=== PATIENT | male | born 1940 | race Caucasian/White ===

== ENCOUNTER 2024-02-20 18:33 | Inpatient (IN) | payer MEDICARE ==
[~2024-02-20] VITALS: Ht 170.2 cm; Wt 81.6 kg
[2024-02-20 19:58] VITALS: BP 172/65; PULSE 67; RESP 18; TEMP 98.7; O2SAT 97
[2024-02-20 20:00] VITALS: BP 172/65; PULSE 67; RESP 18; TEMP 98.7; O2SAT 97
[2024-02-20] MEDS ORDERED: AMLODIPINE BESY10 MG PO (21:08)
[2024-02-20] MEDS ORDERED: FLOMAX0.4 MG PO (21:19)
[2024-02-20] MEDS ORDERED: OLMESARTAN-HCT1 EACH (21:19)
[2024-02-20] MEDS ORDERED: OMEPRAZOLE40 MG PO (21:19)
[2024-02-20] MEDS ORDERED: DYMISTA NASAL S23 GM INH (21:19)
[2024-02-20] MEDS ORDERED: FUROSEMIDE40 MG PO (21:19)
[2024-02-20] MEDS ORDERED: LASIX20 MG PO (21:19)
[2024-02-20] MEDS ORDERED: KENALOG-4040 MG/1 ML INJ (21:19)
[2024-02-20] MEDS ORDERED: GLIPIZIDE5 MG PO (21:19)
[2024-02-20] MEDS ORDERED: SYNTHROID100 MCG PO (21:19)
[2024-02-20] MEDS ORDERED: B12 ACTIVE1000 MCG (21:19)
[2024-02-20] MEDS ORDERED: HYDRALAZINE HCL25 MG PO (21:19)
[2024-02-20] MEDS ORDERED: PRAVASTATIN SOD40 MG (21:19)
[2024-02-20] MEDS ORDERED: NEURONTIN100 MG PO (21:19)
[2024-02-20] MEDS ORDERED: LEVOTHYROXINE100 MC1 IV (21:19)
[2024-02-20] MEDS ORDERED: CICLOPIROX15 GM TOP (21:19)
[2024-02-20] MEDS: HYDRALAZINE HCL 25 MG TAB PO SCH (22:16)
[2024-02-20 22:33] VITALS: BP 172/65; PULSE 67; RESP 18; TEMP 98.7; O2SAT 100
[2024-02-20 23:48] VITALS: BP 139/45; PULSE 87; RESP 20; TEMP 98.6; O2SAT 96
[2024-02-21] VITALS (7 sets, daily range): BP systolic 136–180; BP diastolic 54–78; PULSE 64–78; RESP 16–18; TEMP 98.1–98.7; O2SAT 97–100
[2024-02-21] MEDS ORDERED: ONDANSETRON HCL INJ 2MG/ML 2ML 2 MG/ML VIAL IV PRN
[2024-02-21] MEDS ORDERED: MAGNESIUM/ALUMINUM/SIMETHICONE 30 ML UDC PO PRN
[2024-02-21] MEDS ORDERED: METOPROLOL TARTRATE INJ 1 MG/ML VIAL IV PRN
[2024-02-21] MEDS ORDERED: GUAIFENESIN/DEXTROMETHORPHAN LIQD 5 ML UDC PO PRN
[2024-02-21] MEDS ORDERED: HYDRALAZINE HCL 20 MG/ML VIAL IV PRN
[2024-02-21] MEDS ORDERED: ACETAMINOPHEN 325 MG TAB PO PRN
[2024-02-21] MEDS ORDERED: POLYETHYLENE GLYCOL 3350 17 GM PACK PO PRN
[2024-02-21] MEDS ORDERED: DEXTROSE 50% SYRINGE 50 ML IV PRN (00:30)
[2024-02-21] MEDS: LEVOTHYROXINE SODIUM 100 MCG TAB PO SCH (05:43)
[2024-02-21 06:27] LABS: BASOPHILS % 0.5 % (0.0-1.0); EOSINOPHILS # (AUTO) 0.3 (0.0-0.4); EOSINOPHILS % 3.9 % (0.0-6.0); HEMATOCRIT 29.6 % (38.2-49.6); HEMOGLOBIN 9.4 g/dL (14.0-18.0); LYMPHOCYTES # (AUTO) 1.8 (1.0-3.2); LYMPHOCYTES % 28.3 % (18.0-39.1); MEAN CORPUSCULAR HEMOGLOBIN 28.7 pg (28-32); MEAN CORPUSCULAR HGB CONC 31.8 g/dL (31-35); MEAN CORPUSCULAR VOLUME 90.5 fL (81-99); MONOCYTES # (AUTO) 1.1 (0.2-0.8); MONOCYTES % 17.3 % (4.4-11.3); NEUTROPHILS # (AUTO) 3.1 (2.1-6.9); NEUTROPHILS % 49.5 % (38.7-80.0); PLATELET COUNT 186 x10e3/uL (140-360); RED BLOOD COUNT 3.27 x10e6/uL (4.3-5.7); RED CELL DISTRIBUTION WIDTH 14.1 % (11.7-14.4); WHITE BLOOD COUNT 6.35 x10e3/uL (4.8-10.8)
[2024-02-21 07:00] LABS: ALBUMIN 3.6 g/dL (3.5-5.0); ALBUMIN/GLOBULIN RATIO 1.6 (0.8-2.0); ANION GAP 15.2 mmol/L (8-16); BILIRUBIN,TOTAL 0.5 mg/dL (0.2-1.2); CALCIUM 9.1 mg/dL (8.4-10.2); CREATININE, SERUM 2.71 mg/dL (0.72-1.25); MAGNESIUM 1.7 MG/DL (1.3-2.1); POTASSIUM 4.2 mmol/L (3.5-5.1); TOTAL PROTEIN 5.9 g/dL (6.5-8.1)
[2024-02-21] MEDS: DOCUSATE SODIUM 100 MG CAP PO SCH (09:44)
[2024-02-21] MEDS: MULTIVITAMINS/MINERALS TAB PO SCH (09:44)
[2024-02-21] MEDS: FUROSEMIDE 20 MG TAB PO SCH (09:45)
[2024-02-21] MEDS: OLMESARTAN 20 MG TAB PO SCH (09:45)
[2024-02-21] MEDS: PANTOPRAZOLE SOD 40 MG TABEC PO SCH (09:45)
[2024-02-21] MEDS: AMLODIPINE BESYLATE 10 MG TAB PO SCH (09:45)
[2024-02-21] MEDS: INSULIN REGULAR, HUMAN 100 UNIT/1 ML SQ SCH (09:52)
[2024-02-21] MEDS: AZELASTINE 0.1% HCL 137 MCG NASAL SPRAY NS SCH (09:54)
[2024-02-21] MEDS: TAMSULOSIN HCL 0.4 MG CAP PO SCH (09:54)
[2024-02-21] MEDS: ENOXAPARIN INJ 80 MG/0.8 ML SYR SC SCH (13:02)
[2024-02-21] MEDS ORDERED: ENOXAPARIN SOD INJ 40 MG/0.4 ML SYR SC SCH (17:00)
[2024-02-21] MEDS: GABAPENTIN 100 MG CAP PO SCH (21:00)
[2024-02-21] MEDS: PRAVASTATIN 20 MG TAB PO SCH (21:19)
[2024-02-22] VITALS: BP 148/48; PULSE 66; RESP 20; TEMP 98.7; O2SAT 100
[2024-02-22 05:24] VITALS: BP 159/62; PULSE 69; RESP 18; TEMP 99.5; O2SAT 100
[2024-02-22 05:52] LABS: BILIRUBIN,URINE NEGATIVE (NEGATIVE); CLARITY,URINE CLEAR (CLEAR); COLOR,URINE YELLOW (YELLOW); GLUCOSE, URINE NEGATIVE (NEGATIVE); KETONES,URINE NEGATIVE (NEGATIVE); LEUKOCYTE ESTERASE ,URINE NEGATIVE (NEGATIVE); NITRITE,URINE NEGATIVE (NEGATIVE); PH,URINE 5.5 (5 - 7); PROTEIN,URINE DIPSTICK NEGATIVE (NEGATIVE); URINE UROBILINOGEN 0.2 mg/dL (0.2 - 1)
[2024-02-22 06:15] LABS: BACTERIA,URINE RARE /HPF; EPITHELIAL CELLS,URINE RARE /LPF; RBC,URINE 0-5 /HPF (0-5); WBC,URINE (MAN) 0-5 /HPF (0-5)
[2024-02-22 06:50] LABS: CREATININE, SERUM 2.73 mg/dL (0.72-1.25)
[2024-02-22 08:00] VITALS: BP 134/59; PULSE 73; RESP 17; TEMP 98.1; O2SAT 98
[2024-02-22 08:59] LABS: POTASSIUM 3.9 mmol/L (3.5-5.1)
[2024-02-22 09:00] LABS: CALCIUM 9.5 mg/dL (8.4-10.2)
[2024-02-22] MEDS: FUROSEMIDE 40 MG TAB PO SCH (09:36)
[2024-02-22] MEDS: METOPROLOL SUCCINATE 50 MG TAB XL PO SCH (09:36)
[2024-02-22 10:13] LABS: ANION GAP 15.9 mmol/L (8-16)
[2024-02-22 12:00] VITALS: BP 153/55; PULSE 59; RESP 20; TEMP 98; O2SAT 98
[2024-02-22] MEDS ORDERED: TOPROL XL50 MG PO (12:43)
== END 2024-02-22 13:09 | disposition home or self-care (01) | DRG 308 ==
LOC: MED/SURG3 18:33 → OBSVTOIN 02-21 18:25
PROVIDERS: ADMIT Internal Medicine Critical Care Medicine; ATTEND Internal Medicine Critical Care Medicine
DX: I48.0 Paroxysmal atrial fibrillation (principal); I50.33 Acute on chronic diastolic (congestive) heart failure; I13.0 Hypertensive heart and chronic kidney disease with heart failure and stage 1 through stage 4 chronic kidney disease, or unspecified chronic kidney disease; N17.9 Acute kidney failure, unspecified; E11.40 Type 2 diabetes mellitus with diabetic neuropathy, unspecified; E11.22 Type 2 diabetes mellitus with diabetic chronic kidney disease; N18.30 Chronic kidney disease, stage 3 unspecified; E78.00 Pure hypercholesterolemia, unspecified; E03.9 Hypothyroidism, unspecified; D63.1 Anemia in chronic kidney disease; N40.0 Benign prostatic hyperplasia without lower urinary tract symptoms; Z11.52 Encounter for screening for COVID-19; K59.09 Other constipation; Z79.84 Long term (current) use of oral hypoglycemic drugs; Z79.890 Hormone replacement therapy; Z85.828 Personal history of other malignant neoplasm of skin; Z88.5 Allergy status to narcotic agent
CPT/HCPCS: 36415; 71045; 80048; 80053; 81001; 82270; 82948; 83735; 85025; 93005; 93306; G0378; J1650; U0002

== ENCOUNTER 2024-03-29 17:26 | Inpatient (IN) | payer MEDICARE ==
[~2024-03-29] VITALS: Ht 170.2 cm; Wt 81.6 kg
[~2024-03-29 17:26] MED LIST: AMLODIPINE BESY10 MG PO; B12 ACTIVE1000 MCG; CICLOPIROX15 GM TOP; DYMISTA NASAL S23 GM INH; FLOMAX0.4 MG PO; FUROSEMIDE40 MG PO; GLIPIZIDE5 MG PO; HYDRALAZINE HCL25 MG PO; KENALOG-4040 MG/1 ML INJ; LASIX20 MG PO; LEVOTHYROXINE100 MC1 IV; NEURONTIN100 MG PO; OLMESARTAN-HCT1 EACH; OMEPRAZOLE40 MG PO; PRAVASTATIN SOD40 MG; SYNTHROID100 MCG PO; TOPROL XL50 MG PO
[2024-03-29 17:43] VITALS: TEMP 99.2
[2024-03-29 18:10] LABS: BASOPHILS % 0.6 % (0.0-1.0); EOSINOPHILS # (AUTO) 0.4 (0.0-0.4); EOSINOPHILS % 5.8 % (0.0-6.0); HEMOGLOBIN 7.1 g/dL (14.0-18.0); LYMPHOCYTES % 30.8 % (18.0-39.1); MEAN CORPUSCULAR HEMOGLOBIN 29.2 pg (28-32); MEAN CORPUSCULAR HGB CONC 30.9 g/dL (31-35); MEAN CORPUSCULAR VOLUME 94.7 fL (81-99); MONOCYTES # (AUTO) 0.9 (0.2-0.8); MONOCYTES % 14.2 % (4.4-11.3); NEUTROPHILS # (AUTO) 3.1 (2.1-6.9); PLATELET COUNT 249 x10e3/uL (140-360); RED BLOOD COUNT 2.43 x10e6/uL (4.3-5.7); RED CELL DISTRIBUTION WIDTH 13.8 % (11.7-14.4)
[2024-03-29 18:23] LABS: ALBUMIN 3.8 g/dL (3.5-5.0); ALBUMIN/GLOBULIN RATIO 1.3 (0.8-2.0); ANION GAP 16.1 mmol/L (8-16); BILIRUBIN,TOTAL 0.3 mg/dL (0.2-1.2); CALCIUM 9.1 mg/dL (8.4-10.2); CREATININE, SERUM 2.6 mg/dL (0.72-1.25); POTASSIUM 4.1 mmol/L (3.5-5.1); TOTAL PROTEIN 6.8 g/dL (6.5-8.1)
[2024-03-29 19:03] VITALS: PULSE 79; RESP 18
[2024-03-29] MEDS ORDERED: ONDANSETRON HCL INJ 2MG/ML 2ML 2 MG/ML VIAL IV PRN (19:15)
[2024-03-29] MEDS ORDERED: SODIUM CHLORIDE FLUSH 10 ML SYR INJ PRN (19:15)
[2024-03-29 20:00] VITALS: BP 188/62; PULSE 64; RESP 18; TEMP 97.6; O2SAT 100
[2024-03-29 21:00] VITALS: BP 163/58; PULSE 74; RESP 16; TEMP 98.9; O2SAT 100
[2024-03-29 21:07] VITALS: PULSE 74; RESP 17; O2SAT 99
[2024-03-29] MEDS ORDERED: DEXTROSE 50% SYRINGE 50 ML IV PRN (23:45)
[2024-03-29] MEDS ORDERED: MELATONIN 3 MG TAB PO PRN (23:45)
[2024-03-29] MEDS ORDERED: ACETAMINOPHEN 325 MG TAB PO PRN (23:45)
[2024-03-29] MEDS ORDERED: HYDRALAZINE HCL 20 MG/ML VIAL IV PRN (23:45)
[2024-03-29] MEDS ORDERED: GUAIFENESIN/DEXTROMETHORPHAN LIQD 5 ML UDC PO PRN (23:45)
[2024-03-29] MEDS ORDERED: DOCUSATE SODIUM 100 MG CAP PO PRN (23:45)
[2024-03-30] VITALS (8 sets, daily range): BP systolic 148–177; BP diastolic 49–58; PULSE 55–79; RESP 17–18; TEMP 97.5–98.6; O2SAT 97–100
[2024-03-30 04:45] LABS: % IRON SATURATION 20 % (15-50); IRON 59 ug/dL (65-175); TOTAL IRON BINDING CAPACITY 293 ug/dL (261-478); TRANSFERRIN 209 mg/dL (174-364)
[2024-03-30] MEDS: SODIUM CHLORIDE 0.9% 250ML 250 ML IV ONE (04:54)
[2024-03-30 06:19] LABS: FOLATE 29.3 ng/mL (7.0-15.4)
[2024-03-30] MEDS: LEVOTHYROXINE SODIUM 100 MCG TAB PO SCH (06:27)
[2024-03-30 06:45] LABS: BASOPHILS # (AUTO) 0.1 (0.0-0.1); BASOPHILS % 0.7 % (0.0-1.0); EOSINOPHILS # (AUTO) 0.5 (0.0-0.4); EOSINOPHILS % 6.5 % (0.0-6.0); HEMATOCRIT 24.8 % (38.2-49.6); HEMOGLOBIN 7.7 g/dL (14.0-18.0); LYMPHOCYTES # (AUTO) 1.8 (1.0-3.2); LYMPHOCYTES % 26.5 % (18.0-39.1); MEAN CORPUSCULAR HEMOGLOBIN 29.3 pg (28-32); MEAN CORPUSCULAR VOLUME 94.3 fL (81-99); MONOCYTES # (AUTO) 0.9 (0.2-0.8); NEUTROPHILS # (AUTO) 3.7 (2.1-6.9); PLATELET COUNT 237 x10e3/uL (140-360); RED BLOOD COUNT 2.63 x10e6/uL (4.3-5.7); RED CELL DISTRIBUTION WIDTH 13.8 % (11.7-14.4); WHITE BLOOD COUNT 6.91 x10e3/uL (4.8-10.8)
[2024-03-30 06:46] LABS: INR 1.11; PROTHROMBIN TIME 14.9 seconds (11.9-14.5)
[2024-03-30 07:06] LABS: ALBUMIN 3.6 g/dL (3.5-5.0); ALBUMIN/GLOBULIN RATIO 1.2 (0.8-2.0); ANION GAP 15.2 mmol/L (8-16); BILIRUBIN,TOTAL 0.5 mg/dL (0.2-1.2); CREATININE, SERUM 2.4 mg/dL (0.72-1.25); POTASSIUM 4.2 mmol/L (3.5-5.1); TOTAL PROTEIN 6.5 g/dL (6.5-8.1)
[2024-03-30] MEDS: INSULIN REGULAR, HUMAN 100 UNIT/1 ML SQ SCH (07:30)
[2024-03-30] MEDS: TAMSULOSIN HCL 0.4 MG CAP PO SCH (08:12)
[2024-03-30] MEDS: MULTIVITAMINS/MINERALS TAB PO SCH (08:12)
[2024-03-30] MEDS: HYDRALAZINE HCL 25 MG TAB PO SCH (08:14)
[2024-03-30] MEDS: METOPROLOL SUCCINATE 50 MG TAB XL PO SCH (08:15)
[2024-03-30] MEDS: AMLODIPINE BESYLATE 10 MG TAB PO SCH (08:15)
[2024-03-30] MEDS: IRON SUCROSE 100 MG in SODIUM CHLORIDE 0.9% 100 ML IV SCH (09:58)
[2024-03-30] MEDS: FLUTICASONE PROPIONATE NASAL SPRAY NS SCH (11:33)
[2024-03-30] MEDS ORDERED: FENTANYL CITRATE/PF 100MCG/2 ML INJ ONE (12:30)
[2024-03-30] MEDS ORDERED: LACTATED RINGER'S 1,000 ML ONE (15:03)
[2024-03-30] MEDS ORDERED: GABAPENTIN 100 MG CAP PO SCH (21:00)
[2024-03-30] MEDS ORDERED: PRAVASTATIN 20 MG TAB PO SCH (21:00)
== END 2024-03-30 20:04 | disposition left against medical advice (07) | DRG 378 ==
LOC: ER 17:34 → ERHOLD 19:06 → MED/SURG2 20:15
PROVIDERS: ADMIT Internal Medicine Critical Care Medicine; ATTEND Internal Medicine Critical Care Medicine
PROC: 30233N1 Transfusion of Nonautologous Red Blood Cells into Peripheral Vein, Percutaneous Approach (ICD-10-PCS; 2024-03-29)
PROC: 0DB78ZX Excision of Stomach, Pylorus, Via Natural or Artificial Opening Endoscopic, Diagnostic (ICD-10-PCS; 2024-03-30)
PROC: 0DB68ZX Excision of Stomach, Via Natural or Artificial Opening Endoscopic, Diagnostic (ICD-10-PCS; principal; 2024-03-30 15:12)
DX: K92.2 Gastrointestinal hemorrhage, unspecified (principal); N18.4 Chronic kidney disease, stage 4 (severe); T85.591A Other mechanical complication of esophageal anti-reflux device, initial encounter; D64.9 Anemia, unspecified; E11.40 Type 2 diabetes mellitus with diabetic neuropathy, unspecified; E11.22 Type 2 diabetes mellitus with diabetic chronic kidney disease; I12.9 Hypertensive chronic kidney disease with stage 1 through stage 4 chronic kidney disease, or unspecified chronic kidney disease; I48.0 Paroxysmal atrial fibrillation; E78.5 Hyperlipidemia, unspecified; E03.9 Hypothyroidism, unspecified; K59.09 Other constipation; K20.90 Esophagitis, unspecified without bleeding; K44.9 Diaphragmatic hernia without obstruction or gangrene; K29.70 Gastritis, unspecified, without bleeding; Y84.8 Other medical procedures as the cause of abnormal reaction of the patient, or of later complication, without mention of misadventure at the time of the procedure; Z79.01 Long term (current) use of anticoagulants; Z79.890 Hormone replacement therapy; Z79.84 Long term (current) use of oral hypoglycemic drugs; Z85.828 Personal history of other malignant neoplasm of skin; Z88.5 Allergy status to narcotic agent
CPT/HCPCS: 36415; 43239; 80053; 82607; 82728; 82746; 82948; 83540; 84466; 85025; 85045; 85610; 86850; 86900; 86920; 88305; 88342; 93005; 94799; 99284; J1756; J2470; J7050; P9016